=== PATIENT | male | born 1990 | race African-American/Black ===

== ENCOUNTER 2020-08-10 15:10 | Emergency (ER) | payer OTHER ==
[~2020-08-10] VITALS: Ht 182.9 cm; Wt 85.0 kg
[2020-08-10] MEDS ORDERED: ACETAMINOPHEN 325MG TABLET PO ONE (15:45)
[2020-08-10] MEDS ORDERED: TETANUS, DIPHTHERIA, PERTUSSIS VAC/PF 0.5ML (>7YR OLD) IM ONE (15:45)
[2020-08-10 17:38] VITALS: BP 126/70
== END 2020-08-10 17:39 ==
LOC: ER 15:10
DX: S00.83XA Contusion of other part of head, initial encounter (principal); S00.511A Abrasion of lip, initial encounter; Y04.0XXA Assault by unarmed brawl or fight, initial encounter; Y93.89 Activity, other specified; Y92.488 Other paved roadways as the place of occurrence of the external cause
CPT/HCPCS: 90471; 90715; 99284